=== PATIENT | male | born 1975 | race Two or more races ===

== ENCOUNTER 2020-01-28 05:56 | Day surgery (SDC) | payer OTHER | END 2020-01-28 11:15 | disposition home or self-care (01) | LOC: AMB-ENDOS 05:56 | PROVIDERS: ATTEND Colon & Rectal Surgery | DX: D12.2 Benign neoplasm of ascending colon (principal); D12.4 Benign neoplasm of descending colon; K57.30 Diverticulosis of large intestine without perforation or abscess without bleeding; K64.1 Second degree hemorrhoids; Z12.11 Encounter for screening for malignant neoplasm of colon ==